=== PATIENT | male | born 1955 | race Caucasian/White ===

== ENCOUNTER 2019-08-27 15:18 | Emergency (ER) | payer MEDICARE, BC ==
--- NOTE | 2019-08-27 16:02 | EDM.PDOC ---
ED HPI GENERAL MEDICAL PROBLEM - General Chief Complaint: General Stated Complaint: ER Time Seen by Provider: 08/27/19 15:45 Source of Information: Reports: Patient History Limitations: Reports: No Limitations - History of Present Illness INITIAL COMMENTS - FREE TEXT/NARRATIVE: Patient comes emergency department today with complaints of a brief episode of lightheadedness and blurry vision. This is a 64-year-old male with a past history of hypertension diabetes. 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 He had a sandwich for breakfast and a rice cake for lunch. He drinks about a pot of coffee a day and drinks very little water. He is unsure of the last time he urinated. Approximately an hour to 3 hours prior to arrival he is unsure of the specific time he had an episode of 15 to 30 minutes where he felt lightheaded and his vision got very blurry. He was able to raise both of his hands above his head and he noted no change in strength of his arms or his legs. He had no difficulty with speech or ambulation. He does have a long-term noted essential tremor to bilateral hands that is not worse. He denies any paresthesias of his upper or lower extremities. He denies any change in the functionality of his upper or lower extremities. He does complain of a mild headache. No loss of vision no floaters. No nausea no vomiting. No fever no chills. No chest pain or shortness of breath or difficulty breathing. No palpitations no weakness or syncope. No abdominal pain no nausea no vomiting.. Dysuria or urinary frequency. The episode resolved as stated previously after about 15 to 30 minutes and the only thing he has residual is a headache. Came to the emergency department concerning that he had a stroke. - Related Data Allergies Allergy/AdvReac Type Severity Reaction Status Date / Time No Known Allergies Allergy Verified 08/27/19 15:36 Home Meds: Home Meds Aspirin [Aspirin EC] 81 mg PO DAILY 08/27/19 [History] Cyanocobalamin (Vitamin B-12) [Vitamin B-12] 1,000 mcg PO DAILY 08/27/19 [ History] Propranolol [Inderal LA 24 Hr] 60 mg PO DAILY 08/27/19 [History] Sildenafil Citrate 20 mg PO ASDIRECTED PRN 08/27/19 [History] Tamsulosin HCl [Flomax] 0.4 mg PO DAILY 08/27/19 [History] atorvaSTATin Calcium [Lipitor] 40 mg PO BEDTIME 08/27/19 [History] hydroCHLOROthiazide [Hydrochlorothiazide] 25 mg PO DAILY 08/27/19 [History] lisinopriL [Lisinopril] 40 mg PO DAILY 08/27/19 [History] metFORMIN [Glucophage] 500 mg PO ASDIRECTED 08/27/19 [History] Past Medical History Cardiovascular History: Reports: High Cholesterol, Hypertension Other Cardiovascular History: LBBB Gastrointestinal History: Reports: GERD Endocrine/Metabolic History: Reports: Diabetes, Type II Hematologic History: Reports: B12 Deficiency Social & Family History - Tobacco Use Smoking Status *Q: Unknown Ever Smoked ED ROS GENERAL - Review of Systems Review Of Systems: Comprehensive ROS is negative, except as noted in HPI. ED EXAM, GENERAL - Physical Exam Exam: See Below Exam Limited By: No Limitations General Appearance: Alert, WD/WN, No Apparent Distress Eye Exam: Bilateral Eye: EOMI, Normal Inspection, PERRL Ears: Normal External Exam, Normal TMs Nose: Normal Inspection, Normal Mucosa Throat/Mouth: Normal Lips, Normal Gums, Normal Oropharynx, Normal Voice, No Airway Compromise. No: Normal Inspection (Dry oral mucosa. ) Head: Atraumatic, Normocephalic Neck: Normal Inspection, Supple, Non-Tender Respiratory/Chest: No Respiratory Distress, Lungs Clear, Normal Breath Sounds, No Accessory Muscle Use, Chest Non-Tender Cardiovascular: Normal Peripheral Pulses, Regular Rate, Rhythm Peripheral Pulses: 2+: Radial (L), Radial (R), Posterior Tibial (L), Posterior Tibial (R), Dorsalis Pedis (L), Dorsalis Pedis (R) GI/Abdominal: Normal Bowel Sounds, Soft, Non-Tender (Male) Exam: Deferred Rectal (Males) Exam: Deferred Back Exam: Normal Inspection, Full Range of Motion Extremities: Normal Inspection, Normal Range of Motion, Non-Tender, No Pedal Edema, Normal Capillary Refill Neurological: Alert, Oriented, CN II-XII Intact, Normal Cognition, Normal Gait, Normal Reflexes, No Motor/Sensory Deficits, Other (NIH is 0. He does have a fine tremor equal bilaterally which he relates is chronic for him. ) Psychiatric: Normal Affect, Normal Mood Skin Exam: Warm, Dry, Intact, Normal Color EKG INTERPRETATION EKG Date: 08/27/19 Time: 15:44 Rhythm: NSR Rate (Beats/Min): 76 [place]: Normal P-Wave: Present QRS: LBBB (Old when compared to EKG at [facility] 03/2019) ST-T: Normal QT: Normal Comparison: No Change Course - Vital Signs Last Recorded V/S: Last Vital Signs Temp 36.0 C L 08/27/19 15:20 Pulse 76 08/27/19 15:20 Resp 16 08/27/19 15:20 BP 107/56 L 08/27/19 15:20 Pulse Ox 95 08/27/19 15:20 Orthostatic Blood Pressure [ 145/63 Standing] Orthostatic Blood Pressure [ 95/62 Sitting] Orthostatic Blood Pressure [ 104/59 Supine] - Orders/Labs/Meds Orders: Active Orders 24 hr Category Date Time Status EKG Documentation Completion [RC] STAT Care 08/27/19 15:41 Active Orthostatic Vital Signs [RC] ASDIRECTED Care 08/27/19 16:05 Active Sodium Chloride 0.9% [Normal Saline] 1,000 ml Med 08/27/19 17:10 Active IV ONETIME Sodium Chloride 0.9% [Saline Flush] Med 08/27/19 16:23 Active 10 ml FLUSH ASDIRECTED PRN Peripheral IV Insertion Adult [OM.PC] Stat Oth 08/27/19 16:22 Ordered Medication Orders Sodium Chloride (Normal Saline) 1,000 mls @ 999 mls/hr IV ONETIME ONE Stop: 08/27/19 18:10 Last Admin: 08/27/19 17:05 Dose: 999 mls/hr Sodium Chloride (Saline Flush) 10 ml FLUSH ASDIRECTED PRN PRN Reason: Keep Vein Open Labs: Laboratory Tests 08/27/19 08/27/19 08/27/19 Range/Units 15:51 15:51 15:55 WBC 13.0 H (4.0-10.0) x10^3/uL RBC 4.79 (4.5-6.0) x10^6/uL Hgb 13.1 L (14.0-18.0) g/dL Hct 40.5 (40.0-52.0) % MCV 84.6 (78.0-93.0) fL MCH 27.3 (26.0-32.0) pg MCHC 32.3 (32.0-36.0) g/dL RDW Coeff of Jorgito 14.7 (10.0-15.0) % Plt Count 423 H (130-400) x10^3/uL Neut % (Auto) 81.9 H (50.0-80.0) % Lymph % (Auto) 10.0 L (25.0-50.0) % Elmore % (Auto) 6.4 (2.0-11.0) % Eos % (Auto) 1.2 (0.0-4.0) % Baso % (Auto) 0.5 (0.2-1.2) % Sodium 142 (136-145) mmol/L Potassium 4.3 (3.5-5.1) mmol/L Chloride 103 (98-107) mmol/L Carbon Dioxide 25 (21-32) mmol/L Anion Gap 18.3 (10-20) mmol/L BUN 29 H (7-18) mg/dL Creatinine 1.9 H (0.70-1.30) mg/dL Est Cr Clr Drug Dosing TNP Estimated GFR (MDRD) 36 Glucose 186 H (74-106) mg/dL Calcium 9.6 (8.5-10.1) mg/dL Corrected Calcium 9.52 (8.5-10.1) mg/dL Total Bilirubin 0.6 (0.2-1.0) mg/dL AST 19 (15-37) U/L ALT 23 (16-63) U/L Alkaline Phosphatase 71 (46-116) U/L POC Troponin I 0.00 (0.00-0.08) ng/mL Total Protein 7.8 (6.4-8.2) g/dL Albumin 4.1 (3.4-5.0) g/dL Globulin 3.7 Albumin/Globulin Ratio 1.11 Urine Color (YELLOW) Urine Appearance (CLEAR) Urine pH (5.0-8.0) Ur Specific Fletcher Urine Protein (NEGATIVE) mg/dL Urine Glucose (UA) (NEGATIVE) mg/dL Urine Ketones (NEGATIVE) mg/dL Urine Occult Blood (NEGATIVE) Urine Nitrite (NEGATIVE) Urine Bilirubin (NEGATIVE) Urine Urobilinogen (0.2) EU/dL Ur Leukocyte Esterase (NEGATIVE) U Hyaline Cast (Auto) Urine RBC (NOT SEEN) /HPF Urine WBC (NOT SEEN) /HPF Ur Squamous Epith Cells (NEGATIVE) /HPF Amorphous Sediment Urine Bacteria (NEGATIVE) /HPF Granular Casts (Auto) Urine Mucus (NEGATIVE) /LPF 08/27/19 Range/Units 16:05 WBC (4.0-10.0) x10^3/uL RBC (4.5-6.0) x10^6/uL Hgb (14.0-18.0) g/dL Hct (40.0-52.0) % MCV (78.0-93.0) fL MCH (26.0-32.0) pg MCHC (32.0-36.0) g/dL RDW Coeff of Jorgito (10.0-15.0) % Plt Count (130-400) x10^3/uL Neut % (Auto) (50.0-80.0) % Lymph % (Auto) (25.0-50.0) % Elmore % (Auto) (2.0-11.0) % Eos % (Auto) (0.0-4.0) % Baso % (Auto) (0.2-1.2) % Sodium (136-145) mmol/L Potassium (3.5-5.1) mmol/L Chloride (98-107) mmol/L Carbon Dioxide (21-32) mmol/L Anion Gap (10-20) mmol/L BUN (7-18) mg/dL Creatinine (0.70-1.30) mg/dL Est Cr Clr Drug Dosing Estimated GFR (MDRD) Glucose (74-106) mg/dL Calcium (8.5-10.1) mg/dL Corrected Calcium (8.5-10.1) mg/dL Total Bilirubin (0.2-1.0) mg/dL AST (15-37) U/L ALT (16-63) U/L Alkaline Phosphatase (46-116) U/L POC Troponin I (0.00-0.08) ng/mL Total Protein (6.4-8.2) g/dL Albumin (3.4-5.0) g/dL Globulin Albumin/Globulin Ratio Urine Color Yellow (YELLOW) Urine Appearance Clear (CLEAR) Urine pH 5.0 (5.0-8.0) Ur Specific Fletcher >=1.030 Urine Protein 100 H (NEGATIVE) mg/dL Urine Glucose (UA) Negative (NEGATIVE) mg/dL Urine Ketones 15 H (NEGATIVE) mg/dL Urine Occult Blood Negative (NEGATIVE) Urine Nitrite Negative (NEGATIVE) Urine Bilirubin Moderate H (NEGATIVE) Urine Urobilinogen 1.0 (0.2) EU/dL Ur Leukocyte Esterase Negative (NEGATIVE) U Hyaline Cast (Auto) Few Urine RBC 0-5 (NOT SEEN) /HPF Urine WBC 0-5 (NOT SEEN) /HPF Ur Squamous Epith Cells Few H (NEGATIVE) /HPF Amorphous Sediment Moderate Urine Bacteria Few H (NEGATIVE) /HPF Granular Casts (Auto) Few Urine Mucus Few H (NEGATIVE) /LPF Meds: Medications Generic Name Dose Route Start Last Admin Trade Name Freq PRN Reason Stop Dose Admin Sodium Chloride 1,000 mls @ 999 mls/hr 08/27/19 17:10 08/27/19 17:05 Normal Saline IV 08/27/19 18:10 999 mls/hr ONETIME ONE Administration Sodium Chloride 10 ml 08/27/19 16:23 Saline Flush FLUSH ASDIRECTED PRN Keep Vein Open Discontinued Medications Generic Name Dose Route Start Last Admin Trade Name Freq PRN Reason Stop Dose Admin Acetaminophen 1,000 mg 08/27/19 17:10 08/27/19 17:25 Tylenol Extra Strength PO 08/27/19 17:11 1,000 mg ONETIME ONE Administration Sodium Chloride 1,000 mls @ 999 mls/hr 08/27/19 16:23 08/27/19 16:29 Normal Saline IV 08/27/19 17:23 999 mls/hr ONETIME ONE Administration - Radiology Interpretation Free Text/Narrative:: CT of the head per radiology shows no plain CT evidence of acute intracranial process. Chest x-ray per radiology shows no obvious acute abnormality on the study. Correlation with previous exams needed - Re-Assessments/Exams Free Text/Narrative Re-Assessment/Exam: 08/27/19 16:05 EKG with unchange LBBB when compared to an EKG from [facility] 03/2019. Also noted at that time for that ER visit they had concerns for a possible malignancy vs pneumonia he was treated with Levaquin and I am unable to see a repeat follow Xray. Therefore will complete an EKG as well. His blood pressure is a little on the low side with a SBP of 107 for a person taking three blood pressure pills and will complete orthostatics. 08/27/19 16:10 08/27/19 16:35 Orthostatic are clearly positve with a drop of aprox 35 points systolically and became light headed. His Creat is 1.9 and BUN 29 when compared to 03/20 Creat 1.2 and BUn 29 this is pre-renal dehydration causing his symptoms today. NS 500 ml bolus. Troponin negative. 08/27/19 CXR negative so the previous CXR findings resolved with a round of levaquin. 08/27/19 17:10 NO urge to urinate yet still has a headache. 1gram tylenol po And 500mls bolus. 08/27/19 17:55 After the above therapy. THe patient does feel quite a bit better. His headache has resolved. Recheck of his neuro is unchanged. He is somewhat orthostatic when sitting up but not when he stands up. I really feel that the elevation of his creatinine is due to an acute kidney injury from dehydration. But he also has quite a bit of hypotension that was not responsive completely to fluid. We will hold his hydrochlorothiazide for the next few days. Have him recheck with his primary care provider in 2 days. If his creatinine is not improving organ have to consider changing the metformin as well as his lisinopril due to his worsening creatinine function. Decrease his caffeine and drink lots of fluids. He is understanding this and his questions are answered. Departure - Departure Time of Disposition: 17:38 Disposition: Home, Self-Care 01 Clinical Impression: Dizziness, Acute kidney injury, Dehydration, Orthostatic hypotension - Discharge Information Instructions: Acute Kidney Injury, Adult, Dizziness, [id number], Dehydration , Elderly, [id number] Referrals: PCP,None [Primary Care Provider] - Forms: ED Department Discharge Additional Instructions: Try to decrease caffeine. Push oral fluids over the next few days especially when out in the sun and heat. Home tonight rest. Hold your HCTZ for the next two days and see your PCP on for recheck of blood pressure and also your Creatinine function. If your creatinine is not improving we will need to modify your lisinopril and your metformin as well. Make sure and eat regular meals with protein especially when out in the heat and sun. Return to the ED if new or worsening symptoms. Follow up with PCP on for recheck. Make your position changes slowly especially when going from sitting to standing. Sepsis Event Note - Evaluation Sepsis Screening Result: No Definite Risk - Focused Exam Vital Signs: Vital Signs Temp Pulse Resp BP Pulse Ox 08/27/19 15:20 36.0 C L 76 16 107/56 L 95 Date Exam was Performed: 08/27/19 Time Exam was Performed: 17:55 - My Orders Last 24 Hours: My Active Orders 08/27/19 15:41 EKG Documentation Completion [RC] STAT 08/27/19 16:05 Orthostatic Vital Signs [RC] ASDIRECTED 08/27/19 16:22 Peripheral IV Insertion Adult [OM.PC] Stat 08/27/19 16:23 Sodium Chloride 0.9% [Saline Flush] 10 ml FLUSH ASDIRECTED PRN 08/27/19 17:10 Sodium Chloride 0.9% [Normal Saline] 1,000 ml IV ONETIME - Assessment/Plan Last 24 Hours: My Active Orders 08/27/19 15:41 EKG Documentation Completion [RC] STAT 08/27/19 16:05 Orthostatic Vital Signs [RC] ASDIRECTED 08/27/19 16:22 Peripheral IV Insertion Adult [OM.PC] Stat 08/27/19 16:23 Sodium Chloride 0.9% [Saline Flush] 10 ml FLUSH ASDIRECTED PRN 08/27/19 17:10 Sodium Chloride 0.9% [Normal Saline] 1,000 ml IV ONETIME Assessment:: DIzziness blurred vision from dehydration Dehydration. YEMI from dehydration. Orthostatic hypotension. Plan: Try to decrease caffeine. Push oral fluids over the next few days especially when out in the sun and heat. Home tonight rest. Hold your HCTZ for the next two days and see your PCP on for recheck of blood pressure and also your Creatinine function. If your creatinine is not improving we will need to modify your lisinopril and your metformin as well. Make sure and eat regular meals with protein especially when out in the heat and sun. Return to the ED if new or worsening symptoms. Follow up with PCP on for recheck.
[2019-08-27 16:18] LABS: ANION GAP 18.3 mmol/L (10-20); CHLORIDE,CL 103 mmol/L (98-107); SODIUM,NA 142 mmol/L (136-145)
[2019-08-27] MEDS ORDERED: Sodium Chloride 0.9% 1,000 ML IV ONE ×2 (16:23→17:10)
[2019-08-27] MEDS ORDERED: Sodium Chloride 0.9% 10 ML Syringe FLUSH PRN (16:23)
--- NOTE | 2019-08-27 16:45 | CT ---
[id number] CT/CT Head WO IV EXAM: CT Head WO IV CLINICAL DATA: DIZZINESS BLURRED VISION COMPARISON: NO PREVIOUS SIMILAR EXAM IS AVAILABLE FOR COMPARISON. FINDINGS: There is no mass or mass effect. There is no hemorrhage or hydrocephalus. There are no extra-axial fluid collections. There are no sites of abnormal attenuation. IMPRESSION: NO PLAIN CT EVIDENCE OF ACUTE INTRACRANIAL PROCESS. Hector Gil MD 08/27/19 [id number] Thank you for allowing us to participate in the care of your patient.
--- NOTE | 2019-08-27 16:47 | CR ---
[id number] RAD/RAD Chest PA And Lateral EXAM: RAD Chest PA And Lateral CLINICAL DATA: RECENT MASS NOTED ON CHEST RADIOGRAPH COMPARISON: NO PREVIOUS SIMILAR EXAM IS AVAILABLE. FINDINGS: A metallic density projects against the left infrahilar region The lungs are clear The cardiomediastinal contour is upper normal IMPRESSION: NO OBVIOUS ACUTE ABNORMALITY ON THIS STUDY. CORRELATION WITH PREVIOUS EXAMS NEEDED WHEN AND IF PREVIOUS IMAGES AND REPORTS ARRIVE, AN ADDENDUM WILL BE ISSUED Hector Gil MD 08/27/19 [id number] Thank you for allowing us to participate in the care of your patient.
[2019-08-27] MEDS ORDERED: Acetaminophen 500 MG Tab PO ONE (17:10)
== END 2019-08-27 18:06 | disposition home or self-care (01) ==
LOC: VM.ED 15:18
DX: E86.0 Dehydration (principal); I95.1 Orthostatic hypotension; N17.9 Acute kidney failure, unspecified; I10 Essential (primary) hypertension; E78.00 Pure hypercholesterolemia, unspecified; K21.9 Gastro-esophageal reflux disease without esophagitis; E11.9 Type 2 diabetes mellitus without complications; Z79.82 Long term (current) use of aspirin; Z79.899 Other long term (current) drug therapy
CPT/HCPCS: 36415; 70450; 71046; 80053; 81001; 84484; 85025; 93005; 99284; A9270; J7030; 93010